=== PATIENT | female | born 1985 | race Hispanic/Latino ===

== ENCOUNTER 2021-03-23 22:52 | Emergency (ER) | payer OTHER ==
[2021-03-24 00:18] LABS: Absolute Lymphocytes (CBC) 1.7 K/uL (0.7-4.9); Basophils % 0.4 % (0-1.3); Hematocrit 36.5 % (36.0-45.0); Lymphocytes % 15.1 % (15.3-44.8); MPV 8.8 fL (7.6-11.3); Protime INR 1.06; RBC Red Blood Cell Count 4.07 M/uL (3.86-4.86)
[2021-03-24 00:44] LABS: ALT/SGPT 24 U/L (12-78); AST/SGOT 8 U/L (15-37); Albumin 3.8 g/dL (3.4-5.0); Alkaline Phosphatase 61 U/L (45-117); BUN Blood Urea Nitrogen 13 mg/dL (7-18); Bicarbonate 26 mmol/L (21-32); Bilirubin Direct < 0.1 mg/dL (0-0.2); Bilirubin Total 0.3 mg/dL (0.2-1.0); Glucose Level 115 mg/dL (74-106); Magnesium 2.2 mg/dL (1.8-2.4); NT PRO-BNP 45 pg/mL (<125); Potassium 3.5 mmol/L (3.5-5.1); Protein, Total 7.6 g/dL (6.4-8.2); Sodium Level 142 mmol/L (136-145); Troponin (Emerg Dept Use Only) < 0.02 ng/mL (0.0-0.045)
[2021-03-24 01:40] LABS: Urine Blood Negative (Negative); Urine Glucose Negative (Negative); Urine Protein Negative (Negative); Urine pH 6.5 (5.0-7.0)
[2021-03-24] MEDS ORDERED: ACETAMINOPHEN 500 MG TAB ONE (03:44)
[2021-03-24] MEDS ORDERED: NA CHLORIDE 0.9% 1,000 ML ONE (03:44)
--- NOTE | 2021-03-24 06:01 | EDPHYS ---
Physician Documentation [facility] Name: Alexandria Juarez Age: 35 yrs Sex: Female : 1985 Arrival Date: 03/23/2021 Time: 22:53 Bed 9 Private MD: ED Physician Benoit Bowers HPI: 03/24 03:09 This 35 yrs old Female presents to ER via Ambulatory with complaints of Chest Pain. mh7 03:09 The patient or guardian reports chest pain that is located primarily in the anterior mh7 chest wall, bilaterally. The pain does not radiate. 03:09 Associated signs and symptoms: Pertinent positives: cough, Pertinent negatives: mh7 abdominal pain, diaphoresis, dizziness, headache, lower extremity pain, lower extremity swelling, lightheadedness, nausea, near syncope, palpitations, recent travel, shortness of breath, syncope, vomiting. The chest pain is described as sharp. Duration: The patient or guardian reports multiple episodes, that are intermittent, that wax and wane. Modifying factors: The symptoms are alleviated by NSAIDS, Ibuprofen. the symptoms are aggravated by cough. Severity of pain: At its worst the pain was moderate last night, in the emergency department the pain has improved markedly. Patient states that she tested positive for Covid on 03/04/2021.. 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 - Social history:: Smoking status: Patient denies any tobacco usage or history of. ROS: 03/24 03:09 Constitutional: Negative for fever, chills, and weight loss, Eyes: Negative for injury, mh7 pain, redness, and discharge, ENT: Negative for injury, pain, and discharge, Neck: Negative for injury, pain, and swelling, Abdomen/GI: Negative for abdominal pain, nausea, vomiting, diarrhea, and constipation, Back: Negative for injury and pain, : Negative for injury, bleeding, discharge, and swelling, MS/Extremity: Negative for injury and deformity, Skin: Negative for injury, rash, and discoloration, Neuro: Negative for headache, weakness, numbness, tingling, and seizure, Psych: Negative for depression, anxiety, suicide ideation, homicidal ideation, and hallucinations, Allergy/Immunology: Negative for hives, rash, and allergies, Endocrine: Negative for neck swelling, polydipsia, polyuria, polyphagia, and marked weight changes, Hematologic/Lymphatic: Negative for swollen nodes, abnormal bleeding, and unusual bruising. Exam: 03:09 Constitutional: This is a well developed, well nourished patient who is awake, alert, mh7 and in no acute distress. Head/Face: Normocephalic, atraumatic. Eyes: Pupils equal round and reactive to light, extra-ocular motions intact. Lids and lashes normal. Conjunctiva and sclera are non-icteric and not injected. Cornea within normal limits. Periorbital areas with no swelling, redness, or edema. Neck: Trachea midline, no thyromegaly or masses palpated, and no cervical lymphadenopathy. Supple, full range of motion without nuchal rigidity, or vertebral point tenderness. No Meningismus. Chest/axilla: Normal chest wall appearance and motion. Nontender with no deformity. No lesions are appreciated. Cardiovascular: Regular rate and rhythm with a normal S1 and S2. No gallops, murmurs, or rubs. Normal PMI, no JVD. No pulse deficits. Respiratory: Lungs have equal breath sounds bilaterally, clear to auscultation and percussion. No rales, rhonchi or wheezes noted. No increased work of breathing, no retractions or nasal flaring. Abdomen/GI: Soft, non-tender, with normal bowel sounds. No distension or tympany. No guarding or rebound. No evidence of tenderness throughout. Back: No spinal tenderness. No costovertebral tenderness. Full range of motion. Skin: Warm, dry with normal turgor. Normal color with no rashes, no lesions, and no evidence of cellulitis. MS/ Extremity: Pulses equal, no cyanosis. Neurovascular intact. Full, normal range of motion. Neuro: Awake and alert, GCS 15, oriented to person, place, time, and situation. Cranial nerves II-XII grossly intact. Motor strength 5/5 in all extremities. Sensory grossly intact. Cerebellar exam normal. Normal gait. Psych: Awake, alert, with orientation to person, place and time. Behavior, mood, and affect are within normal limits. Vital Signs: 03/23 23:52 BP 141 / 96; Pulse 100; Resp 17; Temp 98.7(O); Pulse Ox 100% on R/A; Weight 58.97 kg kg (R); Height 5 ft. 5 in. (165.10 cm) (R); Pain 0/10; 03/24 03:40 BP 117 / 78; Pulse 76; Resp 16; Pulse Ox 99% on R/A; lp1 05:34 BP 107 / 68; Pulse 70; Resp 17; Temp 98.4(O); Pulse Ox 97% on R/A; mw2 06:31 BP 121 / 80; Pulse 72; Resp 16; Temp 98.8(O); Pulse Ox 100% on R/A; Pain 1/10; lp1 03/23 23:52 Body Mass Index 21.63 (58.97 kg, 165.10 cm) kg MDM: 05:57 Differential diagnosis: acute myocardial infarction, acute pericarditis, anxiety, mh7 coronary artery disease chest wall pain, congestive heart failure costochondritis, pericarditis, pleurisy, pneumonia, pneumothorax, pulmonary embolus. HEART Score: History: Slightly Suspicious (0), ECG: Normal (0), Age: < or = 45 years (0), Risk Factors: No Risk Factors Known (0), Troponin: < or = 1 x Normal Limit (0), Total Score = 0. Data reviewed: vital signs, nurses notes, old medical records, lab test result(s), cardiac enzymes, CBC, electrolytes, urinalysis, UPT: negative EKG, radiologic studies, CT scan, plain films. Data interpreted: Pulse oximetry: on room air is 97 %. Interpretation: normal. Counseling: I had a detailed discussion with the patient and/or guardian regarding: the historical points, exam findings, and any diagnostic results supporting the discharge/admit diagnosis, lab results, radiology results, the need for outpatient follow up, to return to the emergency department if symptoms worsen or persist or if there are any questions or concerns that arise at home. Response to treatment: the patient's symptoms have resolved after treatment, the patient's blood pressure is in an acceptable range, mental status has returned to baseline, the patient no longer shows bradycardia, the patient is not short of breath, the patient is not tachycardic, the patient's pain is gone, the patient's temperature has normalized. 06:00 Patient medically screened. [facility] 03/24 00:01 Order name: Basic Metabolic Panel; Complete Time: 02:48 kg 03/24 00:01 Order name: CBC with Diff; Complete Time: 02:48 kg 03/24 00:01 Order name: LFT's; Complete Time: 02:48 kg 03/24 00:01 Order name: Magnesium; Complete Time: 02:48 kg 03/24 00:01 Order name: NT PRO-BNP; Complete Time: 02:48 kg 03/24 00:01 Order name: PT-INR; Complete Time: 02:48 kg 03/24 00:01 Order name: Troponin (emerg Dept Use Only); Complete Time: 02:48 kg 03/24 00:01 Order name: XRAY Chest (1 view) kg 03/24 01:38 Order name: Urine Dipstick-Ancillary; Complete Time: 02:48 EDMS 03/24 02:49 Order name: D-Dimer; Complete Time: 04:15 [facility] 03/24 03:37 Order name: CT Chest For PE Angio [facility] 03/24 03:49 Order name: Troponin I 03/24 03:49 Order name: Troponin I; Complete Time: 05:26 EDMS 09 00:01 Order name: EKG; Complete Time: 00:03 kg 03/24 00:01 Order name: EKG - Nurse/Tech; Complete Time: 03:41 kg 03/24 00:01 Order name: IV Saline Lock; Complete Time: 03:16 kg 03/24 00:01 Order name: Labs collected and sent; Complete Time: 03:16 kg 03/24 00:01 Order name: O2 Per Protocol; Complete Time: 04:36 kg 03/24 00:01 Order name: O2 Sat Monitoring; Complete Time: 04:36 kg 03/24 02:34 Order name: Urine Test (obtain specimen); Complete Time: 04:17 [facility] Administered Medications: 03:41 Drug: NS 0.9% 1000 ml Route: IV; Rate: 1000 ml; Site: right antecubital; lp1 05:00 Follow up: IV Status: Completed infusion; IV Intake: 1000ml lp1 05:50 Drug: Tylenol 1000 mg Route: PO; lp1 06:31 Follow up: Response: No adverse reaction lp1 05:50 Drug: predniSONE 60 mg Route: PO; bb 06:30 Follow up: Response: No adverse reaction lp1 Disposition Summary: 03/24/21 06:00 Discharge Ordered Location: Home [facility] Problem: an ongoing problem [facility] Symptoms: have improved [facility] Condition: Stable [facility] Diagnosis - COVID Pneumonia [facility] Followup: [facility] - With: Private Physician - When: 1 - 2 days - Reason: Worsening of condition, Recheck today's complaints, Continuance of care, Re-evaluation by your physician Discharge Instructions: - Discharge Summary Sheet [facility] - Viral Respiratory Infection, [id number] [facility] - COVID-19 [facility] Forms: - Medication Reconciliation Form [facility] - Thank You Letter [facility] - Antibiotic Education [facility] - Prescription Opioid Use [facility] Prescriptions: - albuterol sulfate 90 mcg/actuation Inhalation HFA aerosol inhaler - inhale 2 puff by INHALATION route every 4-6 hours As needed; 1 Inhaler; [facility] Refills: 0, Product Selection Permitted - Zithromax Z-Aaron 250 mg Oral Tablet - take 1 tablet by ORAL route as directed for 5 days Day 1 - take two (2) tablets [facility] one time. Day 2, 3, 4 , 5 take one (1) tablet once daily.; 6 tablet; Refills: 0, Product Selection Permitted - Prednisone 20 mg Oral Tablet - take 2 tablets by ORAL route once daily for 5 days; 10 tablet; Refills: 0, [facility] Product Selection Permitted Signatures: Dispatcher [employer] Ilana Chahal RN RN bb Alfreda Beatty RN RN lp1 Benoit Bowers MD MD 7 Quynh Gilmore RN RN kg
--- NOTE | 2021-03-24 06:01 | ER ---
Nurse's Notes [facility] Name: Alexandria Juarez Age: 35 yrs Sex: Female : 1985 Arrival Date: 03/23/2021 Time: 22:53 Bed 9 Private MD: Diagnosis: COVID Pneumonia Presentation: 03/23 23:52 Chief complaint: Patient states: Chest pain and shaky starting about 22:30. Pt stated, kg " I got diagnosed with COVID 03/04 and it just hasnt gone away and today I started having chest pain.". Coronavirus screen: Vaccine status: Patient reports being unvaccinated. Client presents with at least one sign or symptom that may indicate coronavirus-19. Standard/surgical mask placed on the client. Provider contacted for isolation considerations. Client reports previous positive COVID test result. Date of collection: March 04, 2021. Ebola Screen: Patient negative for fever greater than or equal to 101.5 degrees Fahrenheit, and additional compatible Ebola Virus Disease symptoms Patient denies exposure to infectious person. Patient denies travel to an Ebola-affected area in the 21 days before illness onset. Initial Sepsis Screen: Does the patient meet any 2 criteria? No. Patient's initial sepsis screen is negative. Does the patient have a suspected source of infection? No. Patient's initial sepsis screen is negative. Risk Assessment: Do you want to hurt yourself or someone else? Patient reports no desire to harm self or others. Onset of symptoms was March 23, 2021 at 22:30. 23:52 Method Of Arrival: Ambulatory kg 23:52 Acuity: ZEYNEP 3 kg Triage Assessment: 23:56 General: Appears in no apparent distress. Behavior is calm, cooperative, appropriate kg for age, quiet. Pain: Complains of pain in chest. Pain: Pain does not radiate. Pain currently is 0 out of 10 on a pain scale. at worst was 5 out of 10 on a pain scale. level that patient reports is acceptable is 2 out of 10 on a pain scale. Cardiovascular: Reports chest pain. 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 - Social history:: Smoking status: Patient denies any tobacco usage or history of. Screenin:55 Abuse screen: Denies threats or abuse. Denies injuries from another. Nutritional kg screening: No deficits noted. Tuberculosis screening: No symptoms or risk factors identified. Fall Risk None identified. Assessment: 03/24 03:30 General: Appears in no apparent distress. Behavior is calm, cooperative. Pain: Denies lp1 pain. Pain began suddenly. Neuro: Level of Consciousness is awake, alert, obeys commands, Oriented to person, place, time, situation. Cardiovascular: Reports palpitations, Patient's skin is warm and dry. Respiratory: Respiratory effort is even, unlabored. GI: No signs and/or symptoms were reported involving the gastrointestinal system. Abdomen is flat. : No signs and/or symptoms were reported regarding the genitourinary system. EENT: No signs and/or symptoms were reported regarding the EENT system. Derm: Skin is pink, warm \\T\\ dry. Musculoskeletal: No signs and/or symptoms reported regarding the musculoskeletal system. 06:00 Reassessment: Patient appears in no apparent distress at this time. Patient is alert, lp1 oriented x 3, equal unlabored respirations, skin warm/dry/pink. Patient states feeling better. Vital Signs: 03/23 23:52 BP 141 / 96; Pulse 100; Resp 17; Temp 98.7(O); Pulse Ox 100% on R/A; Weight 58.97 kg kg (R); Height 5 ft. 5 in. (165.10 cm) (R); Pain 0/10; 03/24 03:40 BP 117 / 78; Pulse 76; Resp 16; Pulse Ox 99% on R/A; lp1 05:34 BP 107 / 68; Pulse 70; Resp 17; Temp 98.4(O); Pulse Ox 97% on R/A; mw2 06:31 BP 121 / 80; Pulse 72; Resp 16; Temp 98.8(O); Pulse Ox 100% on R/A; Pain 1/10; lp1 03/23 23:52 Body Mass Index 21.63 (58.97 kg, 165.10 cm) kg ED Course: 03/23 22:53 Patient arrived in ED. bp1 23:55 Triage completed. kg 23:55 Patient has correct armband on for positive identification. kg 23:56 Arm band placed on right wrist. kg 09 00:02 Inserted saline lock: 20 gauge in right antecubital area, using aseptic technique. kg ,using aseptic technique. [place] Blood collected. 00:31 XRAY Chest (1 view) In Process Unspecified. EDMS 02:52 Benoit Bowers MD is Attending Physician. 7 03:05 Patient maintains SpO2 saturation greater than 95% on room air. lp1 03:32 Alfreda Beatty, RN is Primary Nurse. lp1 04:16 CT Chest For PE Angio In Process Unspecified. EDMS 06:32 No provider procedures requiring assistance completed. IV discontinued, No lp1 redness/swelling at site. Pressure dressing applied. Administered Medications: 03:41 Drug: NS 0.9% 1000 ml Route: IV; Rate: 1000 ml; Site: right antecubital; lp1 05:00 Follow up: IV Status: Completed infusion; IV Intake: 1000ml lp1 05:50 Drug: Tylenol 1000 mg Route: PO; lp1 06:31 Follow up: Response: No adverse reaction lp1 05:50 Drug: predniSONE 60 mg Route: PO; bb 06:30 Follow up: Response: No adverse reaction lp1 Intake: 05:00 IV: 1000ml; Total: 1000ml. lp1 Outcome: 06:00 Discharge ordered by . 7 06:32 Discharged to home ambulatory. lp1 06:32 Condition: good 06:32 Discharge instructions given to patient, Instructed on discharge instructions, follow up and referral plans. medication usage, Demonstrated understanding of instructions, follow-up care, medications, Prescriptions given X 3. 06:32 Patient left the ED. lp1 Signatures: Dispatcher [employer] EDMS Ilana Gonzalez RN RN bb Alfreda Beatty, RN RN lp1 Yesi Monsivais mw2 Crystal Hillman bp1 Benoit Bowers MD MD 7 Quynh Gilmore RN RN kg
[2021-03-24] MEDS ORDERED: predniSONE 20 MG TAB ONE (06:15)
[2021-03-24 06:44] VITALS: BP 121/80; TEMP 98.8; O2SAT 100
--- NOTE | 2021-03-24 07:57 | RAD REPORT ---
EXAM DESCRIPTION: RAD - Chest Single View - 03/24/2021 12:30 am CLINICAL HISTORY: PAIN COMPARISON: Chest For Pe Angio dated 03/24/2021 FINDINGS: Lines: None. Lungs: Mild basilar airspace disease bilaterally. Pleural: No significant pleural effusions or pneumothorax. Cardiac: The heart size is within normal limits. Bones: No acute fractures. Other: IMPRESSION: Mild basilar airspace disease could reflect pneumonia or pneumonitis. Reference subseque nt chest CT.
--- NOTE | 2021-03-25 10:17 | RAD REPORT ---
EXAM DESCRIPTION: CT - Chest For Pe Angio - 03/24/2021 5:39 am CLINICAL HISTORY: 35 years, Female, CHEST PAIN COMPARISON: None. TECHNIQUE: Axial images through the chest were performed after the administration of intravenous con trast using a pulmonary embolus protocol. MIPS were performed. This exam was performed according to our departmental dose-optimization program which includes use of Automated Exposure Control, adjustm ent of the mA and/or kV according to patient size and/or use of iterative reconstruction technique. FINDINGS: No pulmonary embolus is identified. Normal caliber aorta without dissection. No pericardial effusion. Motion artifact degrades evaluation of the lungs. There are hazy ill-defined opacities in the periphe ry of both lower lobes probably representing areas of atelectasis. No dense areas of consolidation. N o pleural effusion. No pneumothorax. Soft tissues are unremarkable. No acute osseous findings. No acute abnormality within the visualized upper abdomen. IMPRESSION: Motion degraded exam. Negative for pulmonary embolism. Hazy ill-defined opacities in the dependent portions of both lower lobes probably representing areas of atelectasis. Electronically signed by: Karlos Head DO 03/24/2021 4:53 AM CDT Due to temporary technical issues with the PACS/Fluency reporting system, reports are being signed by the in house radiologists without review as a courtesy to insure prompt reporting. The interpreting radiologist is fully responsible for the content of the report.
--- NOTE | 2021-03-25 16:57 | EKG ---
Test Date: 2021-03-23 Test Time: 23:59:00 Manager Corporate: MIAN MEASUREMENT RESULTS: Intervals: Rate: 90 [place]: 108 QRSD: 80 QT: 364 QTc: 445 [place]: P: 26 [place]: 108 QRS: 76 T: 50 INTERPRETIVE STATEMENTS: Sinus rhythm with short [place] Otherwise normal ECG No previous ECG available for comparison Electronically Signed On 03-25-21 16:55:51 CDT by William Rubio
== END 2021-03-24 06:32 | disposition home or self-care (01) ==
LOC: ER 22:52
DX: U07.1 COVID-19 (principal); J12.82 Pneumonia due to coronavirus disease 2019
CPT/HCPCS: 93005; 85025; 80048; 36415; 83735; 85610; 85379; 80076; 81003; 84484 ×2; 83880; 71275; 71045; 96360; 99284; Q9967; J7512; J7030